=== PATIENT | male | born 1990 | race Caucasian/White ===

== ENCOUNTER 2017-08-29 21:28 | Inpatient (IN) | payer OTHER ==
[2017-08-29] MEDS ORDERED: ONDANSETRON 4 MG/2 ML VIAL IVP ONE (22:41)
[2017-08-29] MEDS ORDERED: NS 1,000 ML IV ONE ×3 (22:41→23:47)
--- NOTE | 2017-08-29 22:43 | EDPHY ---
H & P Stated Complaint: n/v x 2 days Time Seen by Provider: 08/29/17 22:15 HPI/ROS: HPI The patient presents with nausea and vomiting has been present for the last 1 day. It started about separate p.m. Last night after eating dinner. He has had ongoing nausea and vomiting which has been persistent and getting progressively worse. This is not associated with abdominal pain. He has an ileostomy in place and has had increased watery output from it. He says that he has not even been able to take water by mouth. He tried a dose of Pepto- Bismol without any improvement in his symptoms. He has not had a fever. He has no prior history of similar. He has cramping in his fingers and toes.. REVIEW OF SYSTEMS Constitutional: No fever, no chills. Eyes: No discharge. ENT: No sore throat. Cardiovascular: No chest pain, no palpitations. Respiratory: No cough, no shortness of breath. Gastrointestinal: See HPI Genitourinary: No hematuria. Musculoskeletal: No back pain. Skin: No rashes. Neurological: No headache. PMHx: History of ileostomy placed June 2016 at [facility] for which he describes as constipation Soc Hx: Currently incarcerated, history of methamphetamine and heroin abuse PHYSICAL General Appearance: Alert, no distress Eyes: Pupils equal and round no pallor or injection ENT, Mouth: Mucous membranes dry Respiratory: There are no retractions, lungs are clear to auscultation Cardiovascular: Regular rate and rhythm Gastrointestinal: Abdomen is soft and non-tender, no masses, bowel sounds normal, ileostomy place draining watery brown stool Neurological: A&O, moves all extremities Skin: Warm and dry, no rashes Musculoskeletal: Neck is supple non tender Extremities: symmetrical, full range of motion Psychiatric: Patient is oriented X 3, there is no agitation Source: Patient, Police Exam Limitations: No limitations - Personal History Current Tetanus/Diphtheria Vaccine: Yes Current Tetanus Diphtheria and Acellular Pertussis (TDAP): Yes - Medical/Surgical History Hx Asthma: No Hx Chronic Respiratory Disease: No Hx Diabetes: No Hx Cardiac Disease: No Hx Renal Disease: No Hx Cirrhosis: No Hx Alcoholism: No Hx HIV/AIDS: No Hx Splenectomy or Spleen Trauma: No Other PMH: ileostomy may d/t colon rupture, meth & heroin abuse - Social History Smoking Status: Current every day smoker Constitutional: Initial Vital Signs Temperature (C) 36.5 C 08/29/17 21:41 Heart Rate 127 H 08/29/17 21:41 Respiratory Rate 18 08/29/17 21:41 Blood Pressure 118/105 H 08/29/17 21:41 O2 Sat (%) 96 08/29/17 21:41 O2 Delivery Mode Room Air Allergies/Adverse Reactions: No Known Allergies Allergy (Unverified 08/29/17 21:45) Home Medications: Medication Instructions Recorded Elavil 08/29/17 Medical Decision Making Differential Diagnosis: This is a 22 male currently incarcerated, ileostomy in place after some sort of colon resection in 2017, presents with 1 day of nausea, vomiting, inability to take p. O.. Now with muscle cramping After interviewing the nurse in able to IV, I attempted ultrasound-guided IV that would not flush. Differential diagnosis includes viral gastroenteritis, toxin mediated enterocolitis, less likely diverticulitis or appendicitis given no abdominal tenderness. In the emergency department, IV line was eventually established. Labs were checked and revealed acute renal failure. Patient denies any prior history of renal failure. He is quite hemoconcentrated suggesting pre renal azotemia from his vomiting. He was given a total of 3 L of fluid here. Labs were recheck to confirm findings and they were accurate. Because potassium was 6.3, EKG was performed and showed no peaked T-waves. I have consulted with the hospitalist and we plan to admit him to the hospitalist service. - Data Points Laboratory Results: Laboratory Results 08/30/17 00:01 08/30/17 00:01 08/30/17 08/30/17 08/30/17 00:20 00:01 00:01 WBC 20.29 10^3/uL H 10^3/uL (3.80-9.50) RBC 6.34 10^6/uL 10^6/uL (4.40-6.38) Hgb 19.4 g/dL H g/dL (13.7-17.5) Hct 54.2 % H % (40.0-51.0) MCV 85.5 fL fL (81.5-99.8) MCH 30.6 pg pg (27.9-34.1) MCHC 35.8 g/dL g/dL (32.4-36.7) RDW 12.5 % % (11.5-15.2) Plt Count 259 10^3/uL 10^3/uL (150-400) MPV 9.7 fL fL (8.7-11.7) Neut % (Auto) 80.1 % H % (39.3-74.2) Lymph % (Auto) 10.9 % L % (15.0-45.0) [place] % (Auto) 7.9 % % (4.5-13.0) Eos % (Auto) 0.2 % L % (0.6-7.6) Baso % (Auto) 0.3 % % (0.3-1.7) Nucleat RBC Rel Count 0.0 % % (0.0-0.2) Absolute Neuts (auto) 16.25 10^3/uL H 10^3/uL (1.70-6.50) Absolute Lymphs (auto) 2.21 10^3/uL 10^3/uL (1.00-3.00) Absolute Monos (auto) 1.60 10^3/uL H 10^3/uL (0.30-0.80) Absolute Eos (auto) 0.04 10^3/uL 10^3/uL (0.03-0.40) Absolute Basos (auto) 0.06 10^3/uL 10^3/uL (0.02-0.10) Absolute Nucleated RBC 0.00 10^3/uL 10^3/uL (0-0.01) Immature Gran % 0.6 % % (0.0-1.1) Seg Neutrophils % Band Neutrophils % Lymphocytes % Monocytes % Eosinophils % Basophils % Metamyelocytes % Myelocytes % Promyelocytes % Blast Cells % Immature Gran # 0.13 10^3/uL H 10^3/uL (0.00-0.10) Absolute Seg Neuts Absolute Band Neuts Absolute Lymphocytes Absolute Monocytes Absolute Eosinophils Absolute Basophils Absolute Metamyelocyte Absolute Myelocytes Absolute Promyelocytes Absolute Plasma Cells Absolute Blast Cells Plasma Cells % Platelet Estimate Large Platelets Oval Macrocytes Sodium 137 mEq/L mEq/L (135-145) Potassium 5.2 mEq/L H mEq/L (3.3-5.0) Chloride 94 mEq/L L mEq/L (97-110) Carbon Dioxide 17 mEq/l L mEq/l (22-31) Anion Gap 26 mEq/L H mEq/L (8-16) BUN 52 mg/dL H mg/dL (7-23) Creatinine 4.5 mg/dL H mg/dL (0.7-1.3) Estimated GFR 16 Glucose 85 mg/dL mg/dL (70-100) Calcium 9.6 mg/dL mg/dL (8.5-10.4) Total Bilirubin Conjugated Bilirubin Unconjugated Bilirubin AST ALT Alkaline Phosphatase Total Protein Albumin Lipase Specimen Hemolysis Urine Color ELSA Urine Appearance MODERATELY TURBID Urine pH 5.0 (5.0-7.5) Ur Specific [place] 1.021 (1.002-1.030) Urine Protein 2+ H (NEGATIVE) Urine Ketones NEGATIVE (NEGATIVE) Urine Blood 3+ H (NEGATIVE) Urine Nitrate NEGATIVE (NEGATIVE) Urine Bilirubin NEGATIVE (NEGATIVE) Urine Urobilinogen NEGATIVE EU EU (0.2-1.0) Ur Leukocyte Esterase NEGATIVE (NEGATIVE) Urine RBC 25-50 /hpf H /hpf (0-3) Urine WBC 5-10 /hpf H /hpf (0-3) Ur Epithelial Cells TRACE /lpf /lpf (NONE-1+) Urine Mucus 4+ /lpf H /lpf (NONE-1+) Urine Glucose NEGATIVE (NEGATIVE) 08/29/17 08/29/17 22:35 22:35 WBC 24.37 10^3/uL H 10^3/uL (3.80-9.50) RBC 7.23 10^6/uL H 10^6/uL (4.40-6.38) Hgb 21.7 g/dL H* g/dL (13.7-17.5) Hct 60.7 % H* % (40.0-51.0) MCV 84.0 fL fL (81.5-99.8) MCH 30.0 pg pg (27.9-34.1) MCHC 35.7 g/dL g/dL (32.4-36.7) RDW 13.0 % % (11.5-15.2) Plt Count 320 10^3/uL 10^3/uL (150-400) MPV 9.5 fL fL (8.7-11.7) Neut % (Auto) Not Reported Lymph % (Auto) Not Reported [place] % (Auto) Not Reported Eos % (Auto) Not Reported Baso % (Auto) Not Reported Nucleat RBC Rel Count Not Reported Absolute Neuts (auto) Not Reported Absolute Lymphs (auto) Not Reported Absolute Monos (auto) Not Reported Absolute Eos (auto) Not Reported Absolute Basos (auto) Not Reported Absolute Nucleated RBC Not Reported Immature Gran % Not Reported Seg Neutrophils % 82.0 % % Band Neutrophils % 0 % % Lymphocytes % 11.0 % % Monocytes % 7.0 % % Eosinophils % 0 % % Basophils % 0 % % Metamyelocytes % 0 % % Myelocytes % 0 % % Promyelocytes % 0 % % Blast Cells % 0 % % Immature Gran # Not Reported Absolute Seg Neuts 19.98 10^/uL H 10^/uL (1.70-6.50) Absolute Band Neuts 0.00 10^3/uL 10^3/uL (0.00-0.70) Absolute Lymphocytes 2.68 10^3/uL 10^3/uL (1.00-3.00) Absolute Monocytes 1.71 10^3/uL H 10^3/uL (0.30-0.80) Absolute Eosinophils 0.00 10^3/uL L 10^3/uL (0.03-0.40) Absolute Basophils 0.00 10^3/uL L 10^3/uL (0.02-0.10) Absolute Metamyelocyte 0.00 10^3/mL 10^3/mL (0.00-0.00) Absolute Myelocytes 0.00 10^3/mL 10^3/mL (0.00-0.00) Absolute Promyelocytes 0.00 10^3/uL 10^3/uL (0.00-0.00) Absolute Plasma Cells 0.00 10^3/uL 10^3/uL (0.00-0.00) Absolute Blast Cells 0.00 10^3/uL 10^3/uL (0.00-0.00) Plasma Cells % 0 % % Platelet Estimate ADEQUATE (ADEQ) Large Platelets PRESENT H Oval Macrocytes 1+ H Sodium 132 mEq/L L mEq/L (135-145) Potassium 6.3 mEq/L H* mEq/L (3.3-5.0) Chloride 85 mEq/L L mEq/L (97-110) Carbon Dioxide 12 mEq/l L mEq/l (22-31) Anion Gap 35 mEq/L H mEq/L (8-16) BUN 51 mg/dL H mg/dL (7-23) Creatinine 5.3 mg/dL H mg/dL (0.7-1.3) Estimated GFR 13 Glucose 126 mg/dL H mg/dL (70-100) Calcium 10.6 mg/dL H mg/dL (8.5-10.4) Total Bilirubin 2.4 mg/dL H mg/dL (0.1-1.4) Conjugated Bilirubin 1.2 mg/dL H mg/dL (0.0-0.5) Unconjugated Bilirubin 1.2 mg/dL H mg/dL (0.0-1.1) AST 70 IU/L H IU/L (17-59) ALT 24 IU/L IU/L (21-72) Alkaline Phosphatase 121 IU/L IU/L (38-126) Total Protein 11.7 g/dL H g/dL (6.3-8.2) Albumin > 6.0 g/dL H g/dL (3.5-5.0) Lipase 55 IU/L IU/L (23-300) Specimen Hemolysis 186 Urine Color Urine Appearance Urine pH Ur Specific [place] Urine Protein Urine Ketones Urine Blood Urine Nitrate Urine Bilirubin Urine Urobilinogen Ur Leukocyte Esterase Urine RBC Urine WBC Ur Epithelial Cells Urine Mucus Urine Glucose Medications Given: Heparin Sodium (Porcine) (Heparin Sc Injection) 5,000 unit SC Q8 REGI Stop: 02/26/18 05:59 Last Admin: 08/30/17 04:46 Dose: Not Given Sodium Chloride (Ns) 1,000 mls @ 125 mls/hr IV CONT REGI Stop: 02/26/18 01:29 Last Admin: 08/30/17 02:25 Dose: 1,000 mls Discontinued Medications Sodium Chloride (Ns) 1,000 mls @ 0 mls/hr IV EDNOW ONE; Wide Open PRN Reason: Protocol Stop: 08/29/17 22:42 Last Admin: 08/29/17 22:49 Dose: 1,000 mls Sodium Chloride (Ns) 1,000 mls @ 0 mls/hr IV EDNOW ONE; Wide Open PRN Reason: Protocol Stop: 08/29/17 22:42 Last Admin: 08/29/17 23:35 Dose: 1,000 mls Sodium Chloride (Ns) 1,000 mls @ 0 mls/hr IV EDNOW ONE; Wide Open PRN Reason: Protocol Stop: 08/29/17 23:48 Last Admin: 08/30/17 00:50 Dose: 1,000 mls Ondansetron HCl (Zofran) 4 mg IVP EDNOW ONE Stop: 08/29/17 22:42 Last Admin: 08/29/17 23:36 Dose: 4 mg Departure - Departure Disposition: [facility] Acute Clinical Impression: Vomiting, Dehydration, Hyperkalemia Condition: Fair
[2017-08-29 23:31] LABS: PLATELET COUNT 320 10^3/uL (150-400)
--- NOTE | 2017-08-30 00:07 | CPEKG ---
Heart Rate: 96 RR Interval: 625 P-R Interval: 144 QRSD Interval: 90 QT Interval: 340 QTC Interval: 430 P [place]: 68 QRS [place]: 98 T Wave [place]: 57 EKG Severity - ABNORMAL ECG - EKG Impression: SINUS RHYTHM EKG Impression: RIGHT ATRIAL ABNORMALITY EKG Impression: BORDERLINE RIGHT AXIS DEVIATION EKG Impression: ST ELEV, PROBABLE NORMAL EARLY REPOL PATTERN Electronically Signed By: Tammie Riley 31-Aug-2017 05:09:44
[2017-08-30 01:00] LABS: PLATELET COUNT 259 10^3/uL (150-400)
[2017-08-30] MEDS ORDERED: ONDANSETRON 4 MG/2 ML VIAL IVP PRN (01:23)
[2017-08-30] MEDS ORDERED: LORazepam 2 MG/ML INJ IVP PRN (01:23)
[2017-08-30] MEDS ORDERED: ACETAMINOPHEN 325 MG TAB PO PRN (01:23)
[2017-08-30] MEDS ORDERED: PROMETHAZINE HCL 25 MG/ML INJ IVP PRN (01:23)
[2017-08-30] MEDS ORDERED: ACETAMINOPHEN 650 MG SUPP PR PRN (01:23)
[2017-08-30] MEDS: NS 1,000 ML IV SCH ×2 (02:25→11:13)
[2017-08-30] MEDS: HEPARIN 5,000 UNIT/0.5 ML INJ SC SCH ×4 (04:46→21:00)
[2017-08-30 05:05] LABS: PLATELET COUNT 221 10^3/uL (150-400)
[2017-08-30 05:26] LABS: CREATINE KINASE 1017 IU/L (0-224)
--- NOTE | 2017-08-30 07:04 | GHP ---
[f rep st] HISTORY AND PHYSICAL DATE OF ADMISSION: 08/30/2017 PRIMARY CARE PHYSICIAN: Carmelo Parnell. SOURCE: Patient provides history, appears reliable. EMR was reviewed and case discussed with ED pro vider. CHIEF COMPLAINT: Nausea, vomiting, watery stools in ostomy. HISTORY OF PRESENT ILLNESS: This is a 27-year-old gentleman with past medical history significant fo r bowel perforation, status post ileostomy in 05/2016 who presents to the emergency department today from senior care with complaints of several hour history of intractable nausea, vomiting since approximately 7 p.m. following dinner. The patient denies any abdominal pain. He has had multiple episodes of na usea and vomiting. He denies any hematemesis. He has had watery output in his ileostomy, which he s tates was without any blood or melena. The patient without any recent history of antibiotics. He di d try to take some Pepto-Bismol without improvement in symptoms. He has been unable to keep anything down since onset of symptoms. Denies any fevers or chills. He did report some cramping in his hand s and feet initially in the ER, but currently denies. Patient's positive sick contacts include his c ell mate who has similar symptoms. REVIEW OF SYSTEMS: Negative except as noted above. ALLERGIES: No known drug allergies. HOME MEDICATIONS: None. PAST MEDICAL HISTORY: Significant for bowel perforation, status post ileostomy and history of consti pation. PAST SURGICAL HISTORY: Significant for ileostomy as noted above. FAMILY HISTORY: Patient denies any bowel issues or any IBD. SOCIAL HISTORY: Patient currently incarcerated. He does have a history of methamphetamine, heroin u se none. No alcohol, drugs, or tobacco abuse currently while incarcerated. CODE STATUS: Full. PHYSICAL EXAMINATION: VITAL SIGNS: Upon arrival to the emergency department, blood pressure 118/105 , heart rate 127, respiratory rate 18, O2 saturation 96% on room air with temperature 36.5. Current vital signs available, blood pressure 122/63, heart rate is 90, respiratory rate 16, O2 saturation 92 % on 1 L by nasal cannula, temperature 36.9. GENERAL: No acute distress. Young adult gentleman is lying quietly in bed. Does appear fatigued and ill but nontoxic. HEAD: Normocephalic, atraumatic. EYES: Extraocular muscles are grossly intact. Pupils equal, round, reactive to light bilaterally a nd symmetric. No scleral icterus or conjunctival injection. ENT: Mucous membranes appear moist. N o oropharyngeal erythema or exudates. No nasal discharge. NECK: Supple, trachea midline. CARDIOVA SCULAR: Regular rate and rhythm. No murmurs, rubs, or gallops appreciated. RESPIRATORY: Poor insp iratory effort, otherwise lungs are clear. No wheezes, rales, or rhonchi. Unlabored breathing. ABD OMEN: Positive bowel sounds. Soft. Ostomy bag in place. It is opaque. Watery contacts present ba g. No tenderness to palpation. Nondistended abdomen. : No Mason catheter in place. No suprapub ic tenderness to palpation. Urinal at bedside with dark clear urine. MUSCULOSKELETAL: Patient move s all extremities. Sits up independently, does appear fatigued. Able to move all extremities. NEUR O: Grossly nonfocal. No facial drooping. Moves all extremities. PSYCH: Affect is slightly flat. The patient is awake, alert, oriented, interactive. Minimal verbal responses, but does respond appr opriately. LABORATORY STUDIES: Initial WBC 24.37, H and H 21.7 and 60.7, MCV 84.0, platelet count is 320, absol morongo segmented neutrophils 19, no bands. Current laboratory studies: WBC 17.7, H and H 17.7, 49.6, MCV 85.2, platelet count is 221, no bands. Initial CMP: Sodium is 132, potassium 6.3, chloride 85, CO2 is 12, anion gap 35, BUN 51, creatinin e 5.3, GFR 13, glucose 126, calcium 10.6, total bilirubin 2.4, conjugated 1.2, ALT 24, AST 70, alkali ne phosphatase 121, total protein 11.7, albumin greater than 6.0, lipase 55. Repeat lab shows sodium 138, potassium 4.2, chloride 102, CO2 is 20, anion gap 16, BUN 44, creatinine is 2.3, GFR 35, glucose 91, calcium is 8.9, phosphorus 5.3, magnesium 1.7, total bilirubin is 1.6, A LT is 29, AST is 43, alkaline phosphatase is 69. CK is 1017, CK-MB 16.2, total protein 7.7, albumin is 4.4, TSH 0.486. UA is specific gravity 1.021 with a pH of 5.0, moderately turbid, 2+ protein, 3+ blood, 25-50 RBCs, 5 -10 WBCs, epithelials trace, mucus 4+, glucose negative, otherwise negative. EKG reviewed myself showing normal sinus rhythm in the 60s, right atrial abnormality with right axis deviation. ST elevation likely related to rate and repolarization change. No acute ST depressions. QTC is 430. ASSESSMENT/PLAN: This is a 27-year-old gentleman otherwise healthy status post ileostomy for perfora tion, who presents to the emergency department with acute onset intractable nausea and vomiting. 1. Acute renal failure likely prerenal in nature secondary to patient's acute onset of symptoms and inability to stay hydrated. He did appear quite dehydrated in the emergency department status post 3 -4 L of IV fluid since arrival. Repeat renal function has been improving slowly. We will continue t o monitor for resolution. 2. Nausea and vomiting likely is related to a viral gastroenteritis given patient's nausea, vomiting , and loose stool output in his ostomy. The patient does have a positive sick contact with similar s ymptoms. The patient has antiemetics p.r.n. and currently reports that he is feeling better, tolerat ing sips of clears. 3. Hyperkalemia. Sample does appear to have been slightly hemolyzed, but patient with significant d ehydration has improved after several L of IV fluid. The patient was monitored overnight. 4. Polycythemia. Likely secondary to dehydration, has improved. 5. Leukocytosis, 24.3, likely reactive in setting of acute viral illness and severe dehydration. Maycol almaraz is afebrile. We will continue to monitor. No recent history of antibiotics. No need to test for Clostridium difficile at this time. 6. Hyponatremia. Likely secondary to hypovolemia, which is currently resolved. 7. Hypochloremia in the setting hyponatremia, improved with IV fluids. 8. Metabolic acidosis secondary to acute renal failure and dehydration. 9. Hyperbilirubinemia likely related to patient's acute renal insufficiency and severe dehydration. The patient denies any abdominal pain at this time. He is not jaundiced. Will plan to continue wit h IV fluid hydration and monitor for resolution. Consider further imaging if patient should develop any symptoms. 10. Rhabdomyolysis. Patient with mildly elevated CK, but this is a repeat laboratory study and like ly has improved after IV fluids, which we will continue. 11. Fluid, electrolyte, nutrition. Continue with normal saline replacement at 125 mL/h. Advance di et as tolerated, electrolyte replacement as noted above. 12. Prophylaxis. Sequential compression devices in setting of acute renal insufficiency. Heparin f or deep venous thrombosis prophylaxis as patient will have limited mobility. He is currently incarce rated with a leg cuff. 13. Code status. Full. DISPOSITION: Patient admitted to inpatient status on the medical floor secondary to the extreme yoli l failure, electrolyte disturbances and severe dehydration. Anticipate greater than 2 midnight stay. /[id number]/MODL
--- NOTE | 2017-08-30 08:11 | PDMN ---
Medical Necessity Medical necessity: Pt meets INPT criteria per MD and [facility] M-328 Renal Failure, Acute (creatinine 5.3, hyperkalemia, polycythemia, leukocytosis, hyponatremia, hypochloremia, metabolic acidosis, hyperbilirubinemia, rhabdomyolysis, N/V, severe dehydration; s/p ileostomy; est. LOS >2 MN).
--- NOTE | 2017-08-30 11:02 | ASMTCASEMG ---
Living Arrangements What is your living Answers: Alone arrangement? Who do you live with? Type Of Residence What kind of residence do Answers: [facility] you live [facility]? Type of Residence Facility Name Notes: [facility] Discharge Plan Comments Coordination Status Comments Notes: Pt is a 27 y/o man admitted from [facility] for acute renal failure. Pt is a status post ileostomy in 05/2016. Wound care is consulting on this case. Needs are TBD at this time. Ultimately, pt will return back to [facility]. CM to follow. Plan: [facility] Date Signed: 08/30/2017 11:01 AM Electronically Signed By:ALEXY Palm
--- NOTE | 2017-08-30 16:44 | HOSPPROG ---
Hospitalist Progress Note Assessment/Plan: # ANA - severe suspect 2/2 dehydration 5.3-> 2.3 today after hydration oxygen saturations 97% on 2L - EKG (personally reviewed and interpreted) sinus rhythm - cont aggressive fluid resuscitation - recheck in am # Diarrhea - from ostomy - non-bloody - checking GI pathogen panel # Polycythemia - 2/2 dehydration - follow with hydration # Ileostomy - s/'p perforation and surgical repain - follow output - enourage PO # proph - lovenox # diet- encourage PO # dispo - > 2MN as requires ongoing monitoring and hydration I have discussed the case with the RN - need to continue aggressive IVF overnight Subjective: denies pain Objective: Vital Signs Temp Pulse Resp BP Pulse Ox 36.9 C 97 16 111/64 91 L 08/30/17 15:55 08/30/17 15:55 08/30/17 15:55 08/30/17 15:55 08/30/17 15:55 Laboratory Results 08/30/17 04:21 08/30/17 04:21 08/29/17 08/30/17 08/31/17 05:59 05:59 05:59 Intake Total 3100 Output Total 300 1050 Balance 2800 -1050 - Physical Exam Constitutional: appears nourished Eyes: anicteric sclera Ears, Nose, Mouth, Throat: moist mucous membranes Cardiovascular: regular rate and rhythym Respiratory: no respiratory distress Gastrointestinal: normoactive bowel sounds, tenderness Genitourinary: no bladder fullness Skin: warm Musculoskeletal: No asymmetric calves Neurologic: AAOx3 Psychiatric: interacting appropriately Lymph, Heme, Immunologic: no cervical LAD ICD10 Worksheet Patient Problems: Problems Problem Status Onset Dehydration Acute Hyperkalemia Acute Vomiting Acute
[2017-08-30] MEDS ORDERED: AMITRIPTYLINE HCL 100 MG TAB PO SCH (21:00)
[2017-08-31] MEDS: NS 1,000 ML IV SCH (06:06)
[2017-08-31] MEDS: HEPARIN 5,000 UNIT/0.5 ML INJ SC SCH (06:28)
[2017-08-31 07:31] VITALS: BP 84/43
--- NOTE | 2017-08-31 16:22 | GDS ---
[f rep st] DISCHARGE SUMMARY DISCHARGE DIAGNOSES: Include: 1. Acute kidney injury, secondary to dehydration. 2. Polycythemia, secondary to dehydration. 3. Acute leukocytosis, presumed secondary to acute viral gastroenteritis. 4. Diarrhea, presumed secondary to viral pathogen. 5. Chronic ileostomy, secondary to bowel perforation, status post surgical repair. HISTORY OF PRESENT ILLNESS: A 27-year-old male with limited past medical history beyond the presence of an ileostomy from a bowel perforation who presents from retirement after 24 hours of upper GI upset and subsequent watery ostomy output. The patient was overall feeling fatigued, not well with abdominal discomfort, and presented to the emergency department for evaluation. For details of patient's initi al presentation, please see the history and physical dated 08/29/2017. HOSPITAL COURSE: 1. Acute kidney injury. Patient presented clinically very dry with a creatinine of 5.3, received ag gressive fluid resuscitation at 200 cc of normal saline per hour overnight and had improvement of his creatinine from 5.3-0.7 on the morning of disposition. We discussed at length the importance of adarsh ping track of his ileostomy output and increasing his fluid intake if infective ostomy output becomes watery or voluminous. 2. Hypovolemic hyponatremia. Patient presented with a serum sodium of 132. His sodium is improved to 141 on the morning of disposition. 3. Hyperkalemia, secondary to acute kidney injury. The patient's initial potassium was measured at 6.3, came down quickly with fluid resuscitation, and was 4.6 on the day of discharge. 4. Acute leukocytosis. Patient presented with a white count of 24,000. Pathogen related to his gas troenteritis was not identified; however, his white count has normalized to 7 the morning of discharg ed without any antibiotic treatment with supportive care alone. MEDICATIONS AT TIME OF TRANSFER: Please reference the medication reconciliation printed on 8. FOLLOWUP APPOINTMENTS: Include with the retirement clinic. PENDING STUDIES: At the time of this dictation are none. I spent greater than 30 minutes in the planning and coordination of this discharge. /[id number]/MODL
== END 2017-08-31 11:06 | DRG 683 ==
LOC: F3E 08-30 01:54
PROVIDERS: ADMIT Family Medicine; ATTEND Family Medicine
DX: N17.9 Acute kidney failure, unspecified (principal); A08.39 Other viral enteritis; E87.1 Hypo-osmolality and hyponatremia; E86.0 Dehydration; D75.1 Secondary polycythemia; R19.7 Diarrhea, unspecified; E86.1 Hypovolemia; E87.5 Hyperkalemia; E87.8 Other disorders of electrolyte and fluid balance, not elsewhere classified; Z93.2 Ileostomy status; Z72.0 Tobacco use
CPT/HCPCS: 96374; J1644; J2405